=== PATIENT | male | born 2000 | race Caucasian/White ===

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

== ENCOUNTER 2019-05-23 14:03 | Outpatient (CLI) | payer MEDICAID | END 2019-05-23 23:59 | disposition home or self-care (01) | LOC: RAD 14:03 | DX: R56.9 Unspecified convulsions (principal) | CPT/HCPCS: 95819 ==